=== PATIENT | female | born 1990 | race Caucasian/White ===

== ENCOUNTER 2020-08-31 23:15 | Outpatient (CLI) | payer BC, SELFPAY ==
[2020-08-31 23:31] VITALS: BMI 29.8
[2020-08-31 23:36] VITALS: BP 131/71; PULSE 68
[2020-08-31 23:55] VITALS: PULSE 63; O2SAT 98
[2020-08-31 23:56] VITALS: TEMP 36.6; O2SAT 98
[2020-09-01 00:02] LABS: ROM Internal Control Test YES-OK TO RESULT pt. (Internal QC); ROM Patient Test Negative (Negative)
--- NOTE | 2020-09-04 12:00 | OB.TRI.PN ---
Progress Notes Date of Service: 09/02/20 Progress Note: Presented to labor and delivery with possible ROM. Reactive NST No contractions A:Vaginal discharge P: 1)D/C home Laboratory Studies: Laboratory Tests 08/31/20 Range/Units 23:35 Vag Amniotic Fld Detect Negative (Negative)
== END 2020-09-01 00:30 | disposition home or self-care (01) ==
LOC: WPOUT 23:30 → WP 23:31
PROVIDERS: Visit Provider Advanced Practice Midwife
DX: O47.9 False labor, unspecified (principal); Z3A.00 Weeks of gestation of pregnancy not specified
CPT/HCPCS: 59025; 59050; 84112; 99218; G0378

== ENCOUNTER 2020-09-10 21:09 | Inpatient (IN) | payer BC, SELFPAY ==
[2020-09-10] VITALS (11 sets, daily range): BP systolic 109–137; BP diastolic 58–76; PULSE 53–71; RESP 16; TEMP 36.4–37.3; BMI 29.2
[2020-09-10] MEDS: Lactated Ringers 500 ML 999 ML IV (21:30)
[2020-09-10 21:37] LABS: Absolute Lymphocyte Count 3.27 X10^3/uL (0.83-4.51); Absolute Neutrophil Count 10.2 X10^3/uL (2.0-7.7); Basophil# 0.05 X10^3/uL; Basophil% 0.3 % (0-1); Eosinophil# 0.09 X10^3/uL; Eosinophils% 0.6 % (0-5); Hemoglobin 11.6 g/dL (12.0-15.0); Lymphocyte # 3.27 X10^3/ul (4.0); Lymphocyte % 22.5 % (19-41); Mean Corp Hgb Conc 32.2 g/dL (32-36); Mean Corpuscular Hgb 28.2 pg (27.0-32.0); Mean Corpuscular Volume 87.4 fL (81-99); Mean Platelet Vol. 10.4 fl (6.2-12.0); Monocyte# 0.91 X10^3/uL; Monocyte% 6.3 % (0-10); NRBC Flagged by Analyzer 0 % (0-5); Neutrophil # 10.15 X10^3/uL (2.7-7.7); Neutrophil % 69.8 % (47-70); Platelet Count 251 K/mm3 (150-450); RBC Distribution Width CV 12.2 % (11.6-14.6); Red Blood Count 4.12 M/mm3 (4.2-5.4); White Blood Count 14.6 K/mm3 (4.4-11.0)
[2020-09-10] MEDS: Oxytocin 30 units/NS 500 ml 30 UNITS/500 ML IV.SOLN 334 UNITS IV (21:48)
--- NOTE | 2020-09-10 21:53 | PCM.HP.OB ---
- Problem List (1) 39 weeks gestation of Status: Acute (2) Spontaneous onset of labor Status: Acute History Date of Admission: 09/10/20 Final JEN: 09/16/20 Gestational age: 39 Weeks and 1 Days History of this : This is a 30 year-old, G [4], P [3004], at 39.1 weeks gestational age that presents to labor and delivery with contractions that started earlier today. Denies loss of fluid or vaginal bleeding. Positive movement. GBS negative Allergies sweet potato Allergy (Verified 10/28/18 21:42) Vomiting lactose Adverse Reaction (Verified 10/28/18 21:42) Vomiting Home Medications: Home Medications Pnv No.95/Ferrous Fum/Folic AC [ Formula] 1 ea PO DAILY 08/31/20 Number of Fetus(es): 1 NST - FHR Rate Baby A Baseline: 140 Variability:: Moderate History Past Pregnancies: Past Pregnancies Delivery Date Name GA/ Weeks Outcome Route Wt Infant Sex Labor Length Anesthesia Delivery Location Provider FOB Labs: B+ Rubella - immune HB- neg HC- neg RPR- NR HIV- NR GBS- negative Expected Delivery Method: Spontaneous Vaginal Review of Systems Constitutional: Denies: Chills, Fever, Weight Change HEENT: Denies: Head Aches, Sinus Congestion, Sinus Drainage Cardiovascular: Denies: Chest Pain, Palpitations Respiratory: Denies: Cough, Shortness of breath at rest, Sputum production Gastrointestinal: Denies: Abdominal Pain, Nausea, Vomiting Genitourinary: Denies: Dysuria Musculoskeletal: Denies: Joint Pain, Joint Tenderness Neurological: Denies: Numbness, Tingling, Focal weakness Physical Exam Vitals: Vital Signs Temp Pulse BP 98.8 F 64 129/61 H 09/10/20 21:50 09/10/20 21:51 09/10/20 21:51 General: Alert, Oriented x3, Cooperative HEENT: Atraumatic Cardiovascular: Regular rate Lungs: Normal air movement Abdomen: Soft, Non Tender, Gravid Neurological: Cranial nerves II-XII grossly intact Cervix Dilation (cm): 7 Station: -1 Assessment/Plan All Active Problems 39 weeks gestation of (Acute) Spontaneous onset of labor (Acute) This is a 30 year-old, G [4], P [4], at 39.1 weeks gestational age in spontaneous labor. Admit to labor and delivery Routine labs IV fluids per policy Epidural when indicated Anticipate Dr. Sanders notified and is collaborating physician
--- NOTE | 2020-09-10 22:02 | PCM.OPRPT ---
Problem List (1) 39 weeks gestation of Status: Acute (2) Spontaneous onset of labor Status: Acute (3) Precipitous delivery Status: Acute Report of Operation Date of Procedure: 09/10/20 Pre-Operative Diagnosis: Term gestation, spontaneous labor Post-Operative Diagnosis: same, live male Vaginal Delivery Maternal Presentation: Active Labor Patient is a at 39.1 weeks gestation that presented in active, spontaneous labor. Amniotic Membrane Rupture Type: Spontaneous Amniotic Fluid Description: Clear Final JEN: 09/16/20 Gestational age: 39 Weeks and 1 Days Date of Procedure: 09/10/20 Pre-Operative Diagnosis: Term gestation, spontaneous labor Post-Operative Diagnosis: same, live male infant Surgery/ Procedure Performed: Spontaneous Vaginal Delivery Type of Anesthesia: None Description of Procedure: Patient arrived to labor and delivery unit with contractions that started earlier today. She began feeling pressure once transferred to unit bed. She was found to be completely dilated and involuntarily bearing down with contractions. S.R.O.M for clear fluid. I was called quickly to room as head was . With one push, infant head delivered over intact perineum followed by remainder of infant body. Vigorous male placed on maternal abdomen and was attended to by nursing staff. IV Pitocin started for active management of the third stage of labor. Three vessel cord clamped and cut by me after 3 minute delay. Infant placed immediately skin to skin with patient. Placenta delivered spontaneously and intact. After inspection, vagina and perineum intact. EBL 200 cc. APGARS 9/9. Patient bonding with baby at this time. Dr. Sanders notified of delivery. Presentation: Vertex, GUILLE Placental Delivery Description: Spontaneous Placenta Disposition: Patient to take home for encapsulation Cord Vessel Description: 3 Vessels Cord Entanglement: None Estimated Blood Loss: 200 Infant A gender: Male (1 minute): 9 (5 minute): 9 Episiotomy Description: None Laceration: None Medications given after delivery: IV Pitocin Complications: None
[2020-09-10] MEDS: Methylergonovine 0.2 MG/ML Ampul IM (22:55)
[2020-09-10] MEDS: Ibuprofen 600 MG Tablet PO (23:05)
[2020-09-11 05:50] VITALS: BP 117/48; PULSE 50; RESP 16; TEMP 36.7
[2020-09-11] MEDS: Acetaminophen 500 MG Tablet 1000 MG PO (06:32)
--- NOTE | 2020-09-11 09:18 | PCM.PN.OB ---
Patient Problems: Active and Suspected Problems 39 weeks gestation of (Acute) Spontaneous onset of labor (Acute) Precipitous delivery (Acute) Subjective: No complaints - Physical Exam Vitals/I&O's: Vital Signs Temp Pulse Resp BP 98.0 F 50 L 16 117/48 L 09/11/20 05:50 09/11/20 05:50 09/11/20 05:50 09/11/20 05:50 Oxygen Delivery Method Room Air Weight: 181 lb 9.6 oz Body Mass Index (BMI) 29.2 Intake and Output for Last 24 Hours 09/09/20 09/10/20 09/11/20 23:59 23:59 23:59 Intake Total 200.3 / 200.3 500 / 500 Balance 200.3 / 200.3 500 / 500 General: Alert, Oriented x3 Abdomen: Soft, Non Tender, Non-Distended - ff mid & below umb Extremities: No Calf Tenderness Laboratory Results 09/10/20 21:30: WBC 14.6 H, RBC 4.12 L, Hgb 11.6 L, Hct 36.0 L, MCV 87.4, MCH 28.2, MCHC 32.2, RDW Std Deviation 39.0, RDW Coeff of Roni 12.2, Plt Count 251, MPV 10.4, Immature Gran % (Auto) 0.500, Neut % (Auto) 69.8, Lymph % (Auto) 22.5, [place] % (Auto) 6.3, Eos % (Auto) 0.6, Baso % (Auto) 0.3, Absolute Neuts (auto) 10.2 H, Absolute Lymphs (auto) 3.27, Nucleated RBC % 0 09/10/20 21:30: Blood Type B POSITIVE, Antibody Screen NEGATIVE Current Medications Acetaminophen (Acetaminophen 500 Mg Tablet) 1,000 mg PO Q8H PRN PRN PRN Reason: Pain Score 1-3 Last Admin: 09/11/20 06:32 Dose: 1,000 mg Documented by: Bisacodyl (Bisacodyl 10 Mg Suppository) 10 mg RC UD PRN PRN Reason: If no BM Dibucaine (Dibucaine 30 Gm Tube) 1 applic TOPICAL TID PRN PRN; Protocol PRN Reason: Discomfort Hydrocortisone (Hydrocortisone 2.5% Crm) 1 applic TOPICAL TID PRN PRN; Protocol PRN Reason: Discomfort Ibuprofen (Ibuprofen 600 Mg Tablet) 600 mg PO Q6H PRN PRN PRN Reason: Pain Score 1-3 Last Admin: 09/10/20 23:05 Dose: 600 mg Documented by: Methylergonovine Maleate (Methylergonovine 0.2 Mg/Ml Ampul) 0.2 mg IM X1 PRN PRN Reason: Excess bleeding/uterine atony Last Admin: 09/10/20 22:55 Dose: 0.2 mg Documented by: Ondansetron HCl (Ondansetron 4 Mg/2 Ml Vial) 4 mg IV Q4H PRN PRN PRN Reason: Nausea Senna/Docusate Sodium (Senna/Docusate Sodium 1 Tablet) 1 - 2 tablet PO DAILY PRN PRN PRN Reason: Constipation Simethicone (Simethicone 80 Mg Tablet) 80 mg PO PCHS PRN PRN Reason: Indigestion/Stomach pain Sodium Chloride (0.9% Saline Lock 10 Ml Syringe) 5 - 15 ml IV UD PRN PRN Reason: SALINE FLUSH Medical Necessity - Tobacco Use Smoking Status: Never smoker Assessment/Plan All Active Problems 39 weeks gestation of (Acute) Spontaneous onset of labor (Acute) Precipitous delivery (Acute) PPD#1 Routine care
[2020-09-11 09:25] VITALS: BP 113/63; PULSE 54; RESP 16; TEMP 36.3
[2020-09-11] MEDS: Ibuprofen 600 MG Tablet PO (09:27)
[2020-09-11 12:56] VITALS: BP 94/49; PULSE 56; RESP 14; TEMP 36.1
[2020-09-11 12:58] VITALS: BP 99/56
[2020-09-11 15:54] VITALS: BP 111/62; PULSE 58; RESP 16; TEMP 36.6
[2020-09-11 21:50] VITALS: BP 113/55; PULSE 57; RESP 15; TEMP 36.7; O2SAT 96
[2020-09-12] MEDS: Ibuprofen 600 MG Tablet PO (01:50)
[2020-09-12 01:51] VITALS: BP 113/70; PULSE 50; RESP 16; TEMP 36.8
--- NOTE | 2020-09-12 07:31 | PCM.PN.OB ---
Patient Problems: Active and Suspected Problems 39 weeks gestation of (Acute) Spontaneous onset of labor (Acute) Precipitous delivery (Acute) Subjective: Is doing well. Pain is well controlled. Ambulating and voiding without difficulty. Tolerating regular diet without nausea or vomiting. Breast-feeding without complaints. She denies chest pain, shortness of breath, lightheadedness, dizziness. Lochia normal. She desires to go home today. - Physical Exam Vitals/I&O's: Vital Signs Temp Pulse Resp BP Pulse Ox 98.3 F 50 L 16 113/70 96 09/12/20 01:51 09/12/20 01:51 09/12/20 01:51 09/12/20 01:51 09/11/20 21:50 Oxygen Delivery Method Room Air Weight: 181 lb 9.6 oz Body Mass Index (BMI) 29.2 Intake and Output for Last 24 Hours 09/10/20 09/11/20 09/12/20 23:59 23:59 23:59 Intake Total 200.3 / 200.3 500 / 500 Balance 200.3 / 200.3 500 / 500 General: Alert, No apparent distress HEENT: Atraumatic Abdomen: Soft, Non Tender, - - FF@U-1 Extremities: No edema, No Calf Tenderness Skin: No rashes Neurological: Neuro grossly intact Psych/Mental Status: Normal Affect, Appropriate Current Medications Acetaminophen (Acetaminophen 500 Mg Tablet) 1,000 mg PO Q8H PRN PRN PRN Reason: Pain Score 1-3 Last Admin: 09/11/20 06:32 Dose: 1,000 mg Documented by: Bisacodyl (Bisacodyl 10 Mg Suppository) 10 mg RC UD PRN PRN Reason: If no BM Dibucaine (Dibucaine 30 Gm Tube) 1 applic TOPICAL TID PRN PRN; Protocol PRN Reason: Discomfort Hydrocortisone (Hydrocortisone 2.5% Crm) 1 applic TOPICAL TID PRN PRN; Protocol PRN Reason: Discomfort Ibuprofen (Ibuprofen 600 Mg Tablet) 600 mg PO Q6H PRN PRN PRN Reason: Pain Score 1-3 Last Admin: 09/12/20 01:50 Dose: 600 mg Documented by: Methylergonovine Maleate (Methylergonovine 0.2 Mg/Ml Ampul) 0.2 mg IM X1 PRN PRN Reason: Excess bleeding/uterine atony Last Admin: 09/10/20 22:55 Dose: 0.2 mg Documented by: Ondansetron HCl (Ondansetron 4 Mg/2 Ml Vial) 4 mg IV Q4H PRN PRN PRN Reason: Nausea Senna/Docusate Sodium (Senna/Docusate Sodium 1 Tablet) 1 - 2 tablet PO DAILY PRN PRN PRN Reason: Constipation Simethicone (Simethicone 80 Mg Tablet) 80 mg PO PCHS PRN PRN Reason: Indigestion/Stomach pain Sodium Chloride (0.9% Saline Lock 10 Ml Syringe) 5 - 15 ml IV UD PRN PRN Reason: SALINE FLUSH Medical Necessity - Tobacco Use Smoking Status: Never smoker Assessment/Plan All Active Problems 39 weeks gestation of (Acute) Spontaneous onset of labor (Acute) Precipitous delivery (Acute) day 2 after vaginal delivery. She is doing well. Meeting milestones to go home. She desires discharge today. Discharge instructions reviewed.
--- NOTE | 2020-09-12 07:32 | DCINST_ITS ---
Discharge Diet: No Restrictions Discharge Activity: May Shower May resume sexual activity in: 6 weeks Weight Bearing Status: Weight bearing as tolerated Lifting Restrictions: Nothing heavier than baby Call your doctor if you observe: Fever of 101 or Higher, Inability to urinate, Inability to have a bowel movement, Using more than one pad per hour, Shortness of breath, Dizziness, Fainting spells, Swelling in the ankles, Chest pain, In creased palpitations (irregular heartbeat), Calf discomfort, Uncontrolled pain Additional Instructions: If you experience any of the following, contact your healthcare provider. * Bleeding that soaks a pad every hour for 2 hours * Fever 100.4 or higher * Unrelieved incision or abdominal pain * Swelling, redness, discharge or bleeding from your incision or episiotomy site * Your incision begins to separate * Problems urinating (including inability to urinate or burning while urinating). * Visual changes * Severe headache * Flu-like symptoms * Pain or redness in one of both of your breasts * Pain, warmth, tenderness or swelling in your legs, especially the calf area * Frequent nausea and vomiting * Symptoms of depression or anxiety If you experience any of the following, call 911 or go to the nearest Emergency Room. * Chest pain * Problems breathing * Seizure activity * Partial or complete paralysis of a body part, slurred speech, weakness or drooping of the face, or a sudden inability to walk or hold your balance Allergies/Adverse Reactions: Allergies No Known Allergies Allergy (Verified 09/10/20 22:27) Medications to take at Discharge Pnv No.95/Ferrous Fum/Folic AC [ Formula] 1 ea PO DAILY 08/31/20 When: 1-2 weeks for virtual visit if you desires. 6 weeks for visit Primary Care Physician: Care Physician,No Primary [Primary Care Provider] - Test Results: Test results from this visit will be discussed in further detail at your follow- up appointment, if applicable.
--- NOTE | 2020-09-12 07:32 | PCM.DCVAG ---
Discharge Diet: No Restrictions Discharge Activity: May Shower May resume sexual activity in: 6 weeks Weight Bearing Status: Weight bearing as tolerated Lifting Restrictions: Nothing heavier than baby Call your doctor if you observe: Fever of 101 or Higher, Inability to urinate, Inability to have a bowel movement, Using more than one pad per hour, Shortness of breath, Dizziness, Fainting spells, Swelling in the ankles, Chest pain, Increased palpitations (irregular heartbeat), Calf discomfort, Uncontrolled pain Additional Instructions: If you experience any of the following, contact your healthcare provider. Bleeding that soaks a pad every hour for 2 hours Fever 100.4 or higher Unrelieved incision or abdominal pain Swelling, redness, discharge or bleeding from your incision or episiotomy site Your incision begins to separate Problems urinating (including inability to urinate or burning while urinating). Visual changes Severe headache Flu-like symptoms Pain or redness in one of both of your breasts Pain, warmth, tenderness or swelling in your legs, especially the calf area Frequent nausea and vomiting Symptoms of depression or anxiety If you experience any of the following, call 911 or go to the nearest Emergency Room. Chest pain Problems breathing Seizure activity Partial or complete paralysis of a body part, slurred speech, weakness or drooping of the face, or a sudden inability to walk or hold your balance Allergies/Adverse Reactions: Allergies No Known Allergies Allergy (Verified 09/10/20 22:27) Medications to take at Discharge Pnv No.95/Ferrous Fum/Folic AC [ Formula] 1 ea PO DAILY 08/31/20 When: 1-2 weeks for virtual visit if you desires. 6 weeks for visit Primary Care Physician: Care Physician,No Primary [Primary Care Provider] - Test Results: Test results from this visit will be discussed in further detail at your follow-up appointment, if applicable.
[2020-09-12 09:01] VITALS: BP 114/66; PULSE 56; RESP 16; TEMP 36.2
== END 2020-09-12 09:35 | disposition home or self-care (01) | DRG 807 ==
LOC: WPOUT 21:10 → WP 21:11 → WPOUT 21:24 → WP 21:24
PROVIDERS: Admitting Provider Advanced Practice Midwife; Visit Provider Advanced Practice Midwife
DX: O80 Encounter for full-term uncomplicated delivery (principal); Z37.0 Single live birth; Z3A.39 39 weeks gestation of pregnancy
CPT/HCPCS: 59025; 59050; 85025; 86850; 86900; 86901; 99218; J7120; G0378

== ENCOUNTER 2024-01-30 13:36 | Emergency (ER) | payer OTHER, SELFPAY ==
[2024-01-30 13:39] VITALS: BP 135/82; PULSE 70; RESP 18; TEMP 36.9; O2SAT 100; BMI 25.7
--- NOTE | 2024-01-30 14:09 | EX.ED.DYSGE1 ---
HPI History of Present Illness Chief Complaint: General Illness Detail of Chief Complaint: Has not felt well since last weekend Informant: patient Onset/Context/Timing Onset: Days Context: Sudden Onset Timing: Continuous and Waxes and wanes Quality: Initially nausea, vomiting diarrhea now multiple symptoms detailed in the H Location: Initially GI now generalized Current Severity: Mild Worsened by: Unknown Relieved by: Nothing Associated Symptoms Associated Symptoms: Perioral numbness, orthostatic lightheadedness Narrative Narrative: Patient is a 33-year-old woman who was last normal menstrual period was 3 weeks ago. 10 days ago her , children and her were camping. She became ill Tuesday with nausea, vomiting diarrhea. She has not had nausea vomit diarrhea since then. She did go to a ER/urgent care and workup revealed microscopic hematuria. Since that time she has not felt well. She has had periods where she has had perioral numbness. She does not believe she had numbness in her hands or feet. She denied headache. She denied double vision blurred vision loss of vision. She had trouble with speech or swallowing. She had problems with coordination or balance. She has reported intermittent shortness of breath. She has had no chest discomfort. She denies cough. She denies congestion, postnasal drainage or sore throat. She states her urine was dark for 3 days after she had the nausea and vomiting. It is no longer dark. She has not noted blood in her urine. She denies dysuria. She denies frequency. She does endorse lightheadedness with standing rapidly. She presently denies any neurologic symptoms. Prior similar symptoms: No Recent Illness/Hospitalization: Yes (Per HPI narrative) PFSH PFSH Home Medications ?Medication ?Instructions ?Recorded ?Last Taken ?Type vit no.95-ferrous 1 ea PO DAILY 08/31/20 09/09/20 21:00 History fumarate 28 mg-folic acid 800 mcg tablet Allergy/AdvReac Type Severity Reaction Status Date / Time No Known Allergies Allergy Verified 01/30/24 14:14 Surgical History (Updated 01/30/24 @ 14:14 by Citlaly Mauricio) H/O adenoidectomy Social History (Updated 01/30/24 @ 14:[address] Bran Eid MD) household members: spouse and children Smoking Status: Never smoker ROS ROS ED Constitutional Constitutional ED: Reports chills; Denies fever(s), subjective, sweats or weight loss Eyes Eyes: Denies blurry vision or change in vision ENT ENT ED: Denies ear pain, rhinorrhea or sore throat Cardiovascular Cardiovascular: Denies chest pain, orthopnea, palpitations, paroxysmal nocturnal dyspnea or racing heartbeat Respiratory/Chest Respiratory/Chest: Denies cough, dyspnea, dyspnea on exertion, orthopnea or paroxysmal nocturnal dyspnea Gastrointestinal Gastrointestinal: Reports abdominal pain, diarrhea, nausea and vomiting; Denies melena Genitourinary Genitourinary ED: Reports LMP (females 10-50) Details: Comment: (Last normal menses 3 weeks ago. No signs or symptoms of .); Denies dysuria, hematuria or urinary frequency Musculoskeletal Musculoskeletal: Denies arthralgias or myalgias Integumentary Denies rash Neurologic Neurologic: Reports paresthesias; Denies headache(s) or weakness Psychiatric Psychiatric: Denies anxiety or depression EXAM Physical Exam Const Vital Signs: 01/30/24 13:39 01/30/24 14:14 Temperature 98.5 F Temperature Source Temporal Pulse Rate 70 Respiratory Rate 18 Respiratory Effort Normal Blood Pressure 135/82 H Blood Pressure Mean 99 Pulse Ox 100 Oxygen Delivery Method Room Air Positive well nourished and well developed General Appearance ED: well developed and NAD; Negative for cyanotic, diaphoretic or pallor HEENT Reports dry mucous membranes HEENT Narrative: Head is atraumatic and normocephalic. Ears are normal. Nares are patent without discharge. Posterior pharynx erythema or exudate. Mouth ED: Yes dry mucous membranes Mouth: dry mucous membranes Eyes PERRL and EOMs intact bilaterally General Eye ED: Negative for pale conjunctiva or scleral icterus Neck no lymphadenopathy, supple and no JVD Chest Wall inspection of chest normal and palpation of chest normal Resp normal respiratory effort and clear to auscultation bilaterally Cardio regular rate, regular rhythm, S1 normal heart sound, S2 normal heart sound and no murmurs GI normal to inspection, nondistended, normoactive bowel sounds, non-tender, non-distended, hepatosplenomegaly and no masses Back/Spine no CVA tenderness Extremity normal to inspection General Extremety ED: Negative for edema or tenderness General Extremity: Negative for edema Neuro oriented x3 and CN's II-XII intact bilaterally Neuro Narrative: DTRs 3+ bicep, brachialis, tricep, patella and ankle without clonus or Babinski signs. Sensorium / Orientation: alert Psych mental status grossly normal Skin no rashes or lesions noted, no wounds and skin turgor normal General Skin Exam: elasticity normal; Negative for jaundice or pallor MDM MDM MDM Narrative Medical decision making narrative: Clinically patient is dehydrated. 1 L normal saline was ordered. BMP was obtained to assess electrolytes, renal function and BUN and creatinine. UA to assess specific gravity and assess for ketones. Suspect this is related to her illness and probably heat exhaustion since she has been out of the sun and recently had to cut the grass. Lab Data Attestation: I reviewed the patient's lab results. Lab results narrative: Basic metabolic panel reveals slight elevation of chloride. This is insignificant. Patient BUN and creatinine are normal. Urine specific gravity is normal. Macro is positive for occult blood and leukoesterase. Microscopic was unremarkable. Labs: Laboratory Results - last 24 hr 01/30/24 14:00 Sodium 139 Potassium 3.5 Chloride 108 H Carbon Dioxide 28.0 Anion Gap 3 L BUN 11 Creatinine 0.76 Estim Creat Clear Calc 106.24 Est GFR (MDRD) Af Amer 112 Est GFR (MDRD) Non-Af 93 BUN/Creatinine Ratio 14.5 Glucose 89 Calcium 8.9 Urine Color Yellow Urine Clarity Clear Urine pH 7.0 Ur Specific [place] 1.005 Urine Protein Negative Urine Glucose (UA) Normal Urine Ketones Negative Urine Occult Blood 150 H Urine Nitrite Negative Urine Bilirubin Negative Urine Urobilinogen Normal Ur Leukocyte Esterase 25 H Urine RBC 0-5 SEEN Urine WBC 0-5 SEEN Ur Squamous Epith Cells 0-5 SEEN Urine Bacteria 0 SEEN Urine Mucus 0 SEEN Treatment and Re-Evaluation :: There is been no improvement after IV fluids. Will discharge to home with precautions regarding sun exposure and being out in the hot muggy environment. Discharge Plan Triage Chief Complaint: General Illness ED Provider: Bran Eid Dx/Rx/DC Orders Clinical Impression: Paresthesia, Fatigue due to exposure, Elevated BP without diagnosis of hypertension Instructions: ED Hypertension, To Be Confirmed, ED Paraesthesias Prescriptions: No Action PNV cmb#95-ferrous fumarate-FA 1 EACH tablet 1 ea PO DAILY Primary Care Provider: Ilana Jones NP Referrals: Doctor,Your [Non-Staff] - 1 Week if not improving Print Language: [place] Disposition Disposition: Home, Self Care
[2024-01-30] MEDS: 0.9% Normal Saline (1000mL) 1,000 ML 1000 ML IV (14:10)
[2024-01-30 14:13] LABS: Bacteria 0 SEEN /hpf (None Seen); Mucous, Urine 0 SEEN /hpf (<or=2+)
[2024-01-30 14:16] LABS: Color, Urine Yellow (Yellow); Glucose, Dipstick Normal (Normal); Ketone-Dipstick Negative (Negative); Leukocyte Esterase-Dipstick 25 /ul (Negative); Nitrite-Dipstick Negative (Negative); Occult Blood-Urine 150 /ul (Negative); Protein-Dipstick Negative (Negative); Specific Gravity, Urine 1.005 (1.002-1.030); Urine Bilirubin Dipstick Negative (Negative); Urine Clarity Clear (Clear); Urine Urobilinogen Normal (Normal)
[2024-01-30 14:25] LABS: Red Blood Cells-Urine 0-5 SEEN /hpf (0-5); Squamous Epithelial Cells - UA 0-5 SEEN /hpf (5-10); White Blood Cells 0-5 SEEN /hpf (0-5)
[2024-01-30 14:33] LABS: Anion Gap 3 (5-15); BUN 11 mg/dL (7-18); BUN/Creat Ratio 14.5 RATIO (10-20); Calcium,Total 8.9 mg/dL (8.5-10.1); Chloride 108 mmol/L (98-107); Creatinine, Serum 0.76 mg/dL (0.55-1.02); EST Glomerular Filtration Rate 93 mL/min (>60); Est Glom Filt Rate - Afr Amer 112 mL/min (>60); Estimated Creatinine Clearance 106.24 ml/min; Glucose 89 mg/dL (74-106); Potassium 3.5 mmol/L (3.5-5.1); Sodium Level 139 mmol/L (136-145)
[2024-01-30 14:38] VITALS: BP 116/78; PULSE 64; RESP 18; TEMP 36.4; O2SAT 99
== END 2024-01-30 15:08 | disposition home or self-care (01) ==
PROVIDERS: Emergency Provider Emergency Medicine; PCP Nurse Practitioner Family; Visit Provider Emergency Medicine
DX: T67.6XXA Heat fatigue, transient, initial encounter (principal); X30.XXXA Exposure to excessive natural heat, initial encounter; R03.0 Elevated blood-pressure reading, without diagnosis of hypertension; R20.2 Paresthesia of skin
CPT/HCPCS: 80048; 81001; 96360; 99283; J7030

== ENCOUNTER → 2025-03-07 | Outpatient (CLI) | payer OTHER, SELFPAY ==
[2025-03-07 13:15] LABS: Hematocrit 40.8 % (37-47); Hemoglobin 13.3 g/dL (12.0-15.0); Mean Corp Hgb Conc 32.6 g/dL (32-36); Mean Corpuscular Volume 89.7 fL (81-99); Mean Platelet Vol. 9.9 fl (6.2-12.0); Platelet Count 286 K/mm3 (150-450); RBC Distribution Width CV 11.6 % (11.6-14.6); RBC Distribution Width SD 38.1 fl (35.1-43.9); Red Blood Count 4.55 M/mm3 (4.2-5.4); White Blood Count 15.1 K/mm3 (4.4-11.0)
[2025-03-07 14:02] LABS: Color, Urine Yellow (Yellow); Glucose, Dipstick Normal (Normal); Ketone-Dipstick 50 mg/dl (Negative); Leukocyte Esterase-Dipstick Negative /ul (Negative); Nitrite-Dipstick Negative (Negative); Occult Blood-Urine 250 /ul (Negative); Protein-Dipstick 30 mg/dl (Negative); Specific Gravity, Urine 1.015 (1.002-1.030); Urine Bilirubin Dipstick Negative (Negative)
[2025-03-07 14:08] LABS: AST(SGOT) 23 U/L (<=31); Alanine Aminotransfer ALT/SGPT 20 U/L (<=34); Albumin, Serum 4.2 g/dL (3.5-5.0); Alkaline Phosphatase 80 U/L (35-104); Anion Gap 12 (5-15); BUN 14 mg/dL (4-19); BUN/Creat Ratio 16.6 RATIO (10-20); CRP 65.30 mg/L (0.0-3.0); Calcium,Total 9.2 mg/dL (7.6-11.0); Carbon Dioxide 21.0 mmol/L (21.0-32.0); Chloride 105 mmol/L (98-108); Globulin 3.2 g/dL (2.2-4.2); Glucose 84 mg/dL (70-99); Potassium 4.5 mmol/L (3.3-5.1)
[2025-03-09 11:08] LABS: Lyme Scn Total Ab w/Rflx Negative (Negative)
== END | disposition home or self-care (01) ==
PROVIDERS: PCP Nurse Practitioner Family
DX: R50.9 Fever, unspecified (principal)
CPT/HCPCS: 36415; 80053; 81002; 85027; 85652; 86140; 86618; 87086

== ENCOUNTER → 2025-03-08 | Outpatient (CLI) | payer OTHER, SELFPAY | END | disposition home or self-care (01) | LOC: LAB 09:40 | PROVIDERS: PCP Nurse Practitioner Family | DX: R50.9 Fever, unspecified (principal) | CPT/HCPCS: 36415; 87040 ==